=== PATIENT | male | born 1960 | race Caucasian/White ===

== ENCOUNTER → 2016-10-13 | Outpatient (CLI) | payer OTHER ==
[~2016-10-13] MED LIST: ADDERALL 15 MG15 MG PO; ASPIRIN81 M2 PO; CELEBREX50 MG; CENTRUM SILVER1 EAC2 PO; CYCLOBENZAPRINE10 MG PO; EFFEXOR 5050 MG/1 T1; FISH OIL 1,001000 M2 PO; GLUCOSAMINE &1 EACH PO; HYDROCODON-ACE1 EAC7 PO; LISINOPRIL2.5 MG PO; NORCO 5-325 TA1 EACH PO; NORVASC 2.5 MG2.5 M1; PRAVACHOL20 MG PO; PRILOSEC 20 MG20 MG PO; VITAMIN D1000 UNIT PO; VITAMINC500 PO; [UNRECOGNIZED DRUG - OTHER]
== END ==
LOC: RAD 12:08
DX: M47.22 Other spondylosis with radiculopathy, cervical region (principal)